=== PATIENT | female | born 1960 | race Caucasian/White ===

== ENCOUNTER 2022-08-19 09:35 | Inpatient (IN) ==
--- NOTE | 2022-08-19 10:17 | Emergency Department Note ---
Impression & Plan Infection of index finger, Cellulitis of multiple sites of right hand and fingers ED Provider Note CHIEF COMPLAINT: Infection of the right index finger and hand HISTORY OF PRESENT ILLNESS: This 61-year-old female patient presents to the emergency department by private vehicle with complaint of progressive redness and swelling of her right index finger that has now spread up to her right hand. She states she first noticed a small bump on the side of her right index finger a few months ago that was not bothersome. About a week ago she started to notice the area becoming slightly sore, red and swollen. It has been progressively getting larger and more red/purple in color. She saw her PCP 3 days ago and at that time was started on Keflex and Bactrim. She states that the area has continued to get more swollen and she is unable to bend the finger and now she has swelling and pain spreading up into her hand as well. She denies any fevers or chills and has had a normal appetite. She last ate yogurt this morning around 8:30 AM. There has not been any drainage from the area. She denies any other complaints. She is not diabetic. She does not have a history of abscesses. She does not have a history of bad infections or poor immune system. She reports that her tetanus is up-to-date. She has been applying Neosporin to the area as well. She denies any chest pain, shortness of breath, abdominal pain, nausea or vomiting, or unusual rashes. He denies any blood thinner medications. She is right-hand dominant. REVIEW OF SYSTEMS: A complete 10 point review of systems was reviewed with the patient with pertinent positives and negatives as per history of present ill ness. All else were negative. ALLERGIES: No known allergies PMH: Hypothyroidism SOCIAL HISTORY: Lives at home with family, she denies tobacco use PHYSICAL EXAM: Vital Signs: Reviewed in triage notes, vital signs stable. CONSTITUTIONAL: Pleasant and cooperative. No acute distress. Well appearing and well nourished. HEENT: Normocephalic, atraumatic. NECK: Supple, full active range of motion without discomfort. RESPIRATORY: Clear to auscultation bilaterally with no wheezing, crackles, rh onchi or stridor. Equal expansion bilaterally. CARDIOVASCULAR: Regular rate and rhythm with no murmurs, rubs or gallops. Normal peripheral perfusion, 2+ pulses in all 4 extremities. No peripheral edema. GASTROINTESTINAL: Soft, nontender, nondistended. No rebound tenderness or guarding. No palpable masses or HSM. Bowel sounds present in all quadrants. No CVA tenderness bilaterally. MUSCULOSKELETAL: Unable to flex the right index finger, very minimal range of motion. Full range of motion of the right wrist and other fingers. INTEGUMENTARY: There is erythema and swelling throughout the entire dorsum of the right hand and extending slightly up the wrist, with large area of circumferential fluctuance overlying the PIP joint in the right index finger. There is excoriated tissue over the dorsal aspect of the finger and there is purulent yellow discharge from the wound. Brisk capillary refill. NEUROLOGIC: Alert and oriented X 4 with normal affect. Normal strength and sensation in all 4 extremities. Normal speech. Normal gait observed. ED COURSE AND MEDICAL DECISION MAKING: CC: Patient presenting with complaint of right hand/finger infection DIFFERENTIAL DIAGNOSIS: Includes, but not limited to cellulitis, abscess, MRSA infection, tenosynovitis, septic joint, osteomyelitis, among others. INTERPRETATION OF LABS: Leukocytosis, no anemia, normal platelets, no significant electrolyte abnormalities, normal renal function, normal liver enzymes. Moderately elevated inflammatory markers. MEDICATION RECONCILIATION: I attest that I have personally reviewed the patient's current medication list. INITIAL VITAL SIGNS REVIEW: I reviewed the patient's initial vital signs and interpret them as follows: T: Afebrile; BP: Mildly hypertensive; HR: Mildly tachycardic; RR: Within normal limit; Pulse Ox: Within normal limits on room air. MDM SUMMARY: Patient was evaluated at bedside, history and physical exam performed. Patient is alert and oriented, in no acute distress, resting calmly in stretcher. She is afebrile and nontoxic-appearing. There is a significant area of swelling involving the right index finger and primarily overlying the PIP joint with fluctuance and purulent discharge. There is cellulitis extending up the dorsum of the hand and wrist. Minimal range of motion in the right index finger. Orders were placed for labs, including ESR and CRP, x-ray of the right hand. Patient discussed with Dr. Palumbo, who agrees with my assessment, plan, and dispo sition. Labs and imaging reviewed, labs noting leukocytosis and elevated inflammatory markers. X-ray demonstrated moderate soft tissue swelling most pronounced in the right index finger, with no evidence of foreign body, osteomyelitis, or fracture. I did consult orthopedic surgery, concerned that this patient needs to have urgent I&D with surgical washout given the extent of her infection and abscess overlying the joint. I spoke with Dr. Cosme, who requested that the patient not receive IV anti biotics in anticipation of performing wound culture during surgery. Patient is afebrile and well-appearing, I did not feel that she warranted immediate antibiotics at this time. The patient was admitted to the hospitalist service, Dr. Johnson, and orthopedics plan to take the patient for surgery later today. The patient was updated on all results and plan for admission and surgery, all questions were answered to the best of my ability and the patient was agreeable to this plan. Patient was stable at the time of admission. The chart was completed utilizing [employer] voice recognition software. Grammatical errors, random word insertions, pronoun errors, and incomplete sentences are an occasional consequence of this system due to software limitations, ambient noise, and hardware issues. Any formal questions or concerns about the content, text, or information contained within the body of this dictation should be directly addressed to the nurse practitioner for clarification. Past Med/Surg History Medical History Abnormal Pap smear of cervix Family history of cardiac disorder in mother Hypothyroidism Surgical History History of tubal ligation 1989 OR 1990 Family History Aunt Uterine cancer Grandmother (Paternal) Diabetes Uncle Diabetes Mother Heart disease Myocardial infarction Denies family history of Ovarian cancer Prostate cancer Breast cancer Colorectal cancer Social History Smoking Status: Never smoker Second Hand Exposure: No; Hx Alcohol Use: No Hx Substance Use: No Preferred Language: Greenlandic Communication Ability: Effective Visual Impairment: No Limitations Hearing 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: Normal 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 Beliefs That Will Affect Care: None marital status: Current Living Situation: Alone current occupational status: employed current occupation: Part-time [employer] Other Information That Helps Us Care for You: No Feels Safe at Home: Yes Safety Concerns: Feels Safe At This Time Dental Care, Regularly: No Physical Activity Frequency: 1-2 Times per Week Seatbelt Use: always Sunscreen Use: Yes Assistive Devices: Glasses Allergies Allergies Allergy/AdvReac Type Severity Reaction Status Date / Time No Known Allergies Allergy Verified 08/19/22 10:52 Home Meds Home Medications Medication Instructions Recorded Confirmed loratadine 10 mg tablet (Allergy 10 mg PO DAILY PRN Allergy Symptoms 05/22/19 08/19/22 Relief (loratadine)) multivitamin (One Daily 1 tab PO DAILY 05/22/19 08/19/22 Multivitamin tablet) calcium carbonate 600 mg-vitamin 1 cap PO HS 05/04/20 08/19/22 D3 12.5 mcg (500 unit) capsule (Calcium 600 with Vitamin D3) vitamin A palmitate 10,000 unit 10,000 unit PO DAILY 05/03/21 08/19/22 tablet ascorbic acid (vitamin C) 500 mg 500 mg PO HS 08/19/22 08/19/22 tablet (Vitamin C) zinc acetate 50 mg (zinc) capsule 50 mg PO DAILY 08/19/22 08/19/22 Previous Rx's Medication Instructions Recorded levothyroxine 50 mcg tablet 50 mcg PO DAILY #90 tabs 04/21/22 (Synthroid) cephalexin 500 mg capsule 500 mg PO BID #14 caps 08/16/22 sulfamethoxazole 800 1 tab PO BID 7 days #14 tabs 08/16/22 mg-trimethoprim 160 mg tablet (Bactrim DS) Results & Data (ED) Vital Signs Vital Signs - 24 hr 08/19/22 09:40 08/19/22 11:44 Temperature 37.1 C Temperature Source Temporal Artery Scan Pulse Rate 97 H Pulse Rate [Radial] 78 Respiratory Rate 18 18 Respiratory Effort / Characteristics Non-Labored Respiratory Depth Normal Normal Blood Pressure 143/84 H Blood Pressure [Left Arm] 135/65 Blood Pressure Mean 103 Blood Pressure Mean [Left Arm] 88 Blood Pressure Position Sitting Blood Pressure Position [Left Arm] Lying Pulse Oximetry 99 97 Oxygen Delivery Method Room Air Room Air Sepsis Recent Fever Within 48 Hours No Sepsis New/Unexplained Change in Mental Status No Sepsis Action Taken by Nursing No Action Required Laboratory Data Result diagrams: 08/19/22 10:28 08/19/22 10:28 Lab Results 08/19/22 08/19/22 08/19/22 Range/Units 10:28 10:28 10:28 WBC 13.95 H (4.8-10.8) K/ul RBC 4.30 (3.93-5.22) M/uL Hgb 13.8 (12.0-16.0) g/dl Hct 38.9 (34.1-44.9) % MCV 90.5 (80.0-100.0) fL MCH 32.1 (25.0-34.0) pg MCHC 35.5 (32.0-36.0) g/dL RDW Std Deviation 40.8 (36.4-46.3) fL RDW Coeff of Willem 12.3 (11.5-14.5) % Plt Count 173 (130-400) K/uL MPV 11.2 (9.4-12.3) fL Immature Gran % (Auto) 0.4 % Neut % (Auto) 80.1 % Lymph % (Auto) 9.2 % Mcdowell % (Auto) 9.2 % Eos % (Auto) 0.9 % Baso % (Auto) 0.2 % Neut # (Auto) 11.17 H (1.4-6.5) K/uL Lymph # (Auto) 1.28 (1.2-3.4) K/uL Mcdowell # (Auto) 1.29 H (0.24-0.82) K/uL Eos # (Auto) 0.12 (0-0.50) K/uL Baso # (Auto) 0.03 (0-0.2) K/uL Immature Gran # (Auto) 0.06 H (0.00-0.02) K/uL ESR 40 H (0-30) mm/hr Sodium 136 (136-145) mmol/L Potassium 4.2 (3.5-5.1) mmol/L Chloride 103 (98-107) mmol/L Carbon Dioxide 23 (21-32) mmol/L Anion Gap 10 (3-11) BUN 14 (6-23) mg/dl Creatinine 0.75 (0.6-1.2) mg/dl Est Cr Clr Drug Dosing 77.3 ml/min Est GFR ( Amer) 98.3 ml/min Est GFR (Non-Af Amer) 84.8 ml/min BUN/Creatinine Ratio 18.7 (10-20) Glucose 114 H (70-99(Fasting)) mg/dl Calcium 9.2 (8.5-10.1) mg/dl Total Bilirubin 0.6 (0.2-1.0) mg/dl AST 17 (13-39) U/L ALT 11 (7-52) U/L Alkaline Phosphatase 86 (34-104) U/L C-Reactive Protein 19.10 H (0-0.5) mg/dl Total Protein 7.3 (6.0-8.3) gm/dl Albumin 4.1 (3.4-5.0) gm/dl Globulin 3.2 (2.5-4.0) gm/dl Albumin/Globulin Ratio 1.3 (0.9-2) Administered Medications Ceftriaxone Sodium 1,000 mg/ (Dextrose) 50 mls @ 100 mls/hr IV Q24H [facility]; Protocol Stop: 08/26/22 17:59 Last Admin: 08/19/22 18:19 Dose: 100 mls/hr Documented By: SABIHA Discontinued Medications Bupivacaine HCl (Bupivacaine 0.5 % 5 Mg/1 Ml Mpf 30ml Vial) Confirm Administered Dose 30 ml .ROUTE .[employer] ONE Stop: 08/19/22 14:55 Last Admin: 08/19/22 15:51 Dose: 12 ml Documented By: JARRED Imaging Data Radiologist's Impression: Finger X-Ray 08/19/22 10:13 XR finger(s) RT min 2V, XR hand RT min 3V routine HISTORY: 61 years-old Female index finger infection acute pain with soft tissue swelling of the right hand and second finger COMPARISON: None TECHNIQUE: 3 views of the right hand with 3 views of the right second finger FINDINGS: HAND: Mild multifocal osteoarthritis. No acute fracture, dislocation or osseous erosion. Mild diffuse soft tissue swelling, pronounced within the second finger. FINGER: Moderate soft tissue swelling, most pronounced within the proximal to mid finger. No acute fracture, dislocation, opaque foreign body or osseous erosion identified. IMPRESSION: Soft tissue swelling without acute osseous abnormality. ACT 112: Negative or not required by law. The above report was generated using voice recognition software. It may contain grammatical, syntax or spelling errors. Electronically signed by: Da Mccallum M.D. 08/19/2022 10:59 AM Hand X-Ray 08/19/22 10:18 XR finger(s) RT min 2V, XR hand RT min 3V routine HISTORY: 61 years-old Female index finger infection acute pain with soft tissue swelling of the right hand and second finger COMPARISON: None TECHNIQUE: 3 views of the right hand with 3 views of the right second finger FINDINGS: HAND: Mild multifocal osteoarthritis. No acute fracture, dislocation or osseous erosion. Mild diffuse soft tissue swelling, pronounced within the second finger. FINGER: Moderate soft tissue swelling, most pronounced within the proximal to mid finger. No acute fracture, dislocation, opaque foreign body or osseous erosion identified. IMPRESSION: Soft tissue swelling without acute osseous abnormality. ACT 112: Negative or not required by law. The above report was generated using voice recognition software. It may contain grammatical, syntax or spelling errors. Electronically signed by: Da Mccallum M.D. 08/19/2022 10:59 AM Discharge Plan Visit Data Chief Complaint: Finger Pain Stated Complaint: INFECTION ON RIGHT INDEX FINGER, SWOLLEN ED Provider: Zachery Palumbo ED Midlevel Provider: Jacqueline Alba Discharge Problem: Infection of index finger, Cellulitis of multiple sites of right hand and fingers Patient Disposition: Admitted As Inpatient Condition: Good
[2022-08-19 10:58] LABS: Basophils # (auto) 0.03 K/uL (0-0.2); Basophils % (auto) 0.2 %; Eosinophils # (auto) 0.12 K/uL (0-0.50); Eosinophils % (auto) 0.9 %; Hematocrit (blood only) 38.9 % (34.1-44.9); Hemoglobin 13.8 g/dl (12.0-16.0); Immature Granulocytes # (auto) 0.06 K/uL (0.00-0.02); Immature Granulocytes % (auto) 0.4 %; Lymphocytes # (auto) 1.28 K/uL (1.2-3.4); Lymphocytes % (auto) 9.2 %; Mean Corpuscular Hemoglobin 32.1 pg (25.0-34.0); Mean Corpuscular Hgb Conc 35.5 g/dL (32.0-36.0); Mean Corpuscular Volume 90.5 fL (80.0-100.0); Mean Platelet Volume 11.2 fL (9.4-12.3); Monocytes # (auto) 1.29 K/uL (0.24-0.82); Monocytes % (auto) 9.2 %; Neutrophils # (auto) 11.17 K/uL (1.4-6.5); Neutrophils % (auto) 80.1 %; Platelet Count 173 K/uL (130-400); RDW Coefficient of Variation 12.3 % (11.5-14.5); RDW Standard Deviation 40.8 fL (36.4-46.3); White Blood Count 13.95 K/ul (4.8-10.8)
--- NOTE | 2022-08-19 11:03 | XRay Report ---
XR finger(s) RT min 2V, XR hand RT min 3V routine HISTORY: 61 years-old Female index finger infection acute pain with soft tissue swelling of the righ t hand and second finger COMPARISON: None TECHNIQUE: 3 views of the right hand with 3 views of the right second finger FINDINGS: HAND: Mild multifocal osteoarthritis. No acute fracture, dislocation or osseous erosion. Mild diffuse soft tissue swelling, pronounced within the second finger. FINGER: Moderate soft tissue swelling, most pronounced within the proximal to mid finger. No acute fr acture, dislocation, opaque foreign body or osseous erosion identified. IMPRESSION: Soft tissue swelling without acute osseous abnormality. ACT 112: Negative or not required by law. The above report was generated using voice recognition software. It may contain grammatical, syntax o r spelling errors. Electronically signed by: Da Mccallum M.D. 08/19/2022 10:59 AM
[2022-08-19 11:17] LABS: Albumin Globulin Ratio 1.3 (0.9-2); Albumin Level 4.1 gm/dl (3.4-5.0); BUN Creatinine Ratio 18.7 (10-20); Bilirubin,Total 0.6 mg/dl (0.2-1.0); C Reactive Protein 19.1 mg/dl (0-0.5); Calcium 9.2 mg/dl (8.5-10.1); Creatinine Clr Calc Pharmacy 77.3 ml/min; Est GFR (African American) 98.3 ml/min; Est GFR (Non-African American) 84.8 ml/min; Globulin 3.2 gm/dl (2.5-4.0); Potassium 4.2 mmol/L (3.5-5.1); Total Protein 7.3 gm/dl (6.0-8.3)
--- NOTE | 2022-08-19 13:25 | History & Physical Report ---
Date of Service August 19, 2022 Assessment & Plan (1) Cellulitis of right index finger: Plan: - Patient had a "bump " on R 2nd PIP join for months or possibly up to year which is never been problematic until this past week when it became red and swollen, painful, unknown why as she has no recent injuries to the area, hands in water frequently, etc. - She saw her PCP on 08/16, diagnosed with a skin infection due to cracked skin, has been on Keflex and Bactrim. - Erythema, edema worsening now with drainage of open wound on second digit despite abx. It extends to just about the level of the wrist, knuckle joints obscured from swelling. - Patient does not appear septic, vital signs are stable, has been afebrile without any symptoms of systemic infection. - WBC 14, ESR 40, CRP 19. - Hand, finger x-ray: Soft tissue swelling without acute osseous abnormality. - Ortho to see patient hold off on further antibiotics for now until they can collect a culture. - Will plan to place on Vancomycin and Rocephin after ortho collects culture, unless they recommend otherwise. - Please see my attending physician, Dr. Johnson's note for day of admission imaging. (2) Hypothyroidism: Plan: - Continue Synthroid. Plan - Admit to [facility]. - SCDs for VTE PPx. - Full code. History of Present Illness Chief Complaint: second digit redness and swelling x several days Primary Care Provider: Melissa Liang MD Sharon Arellano is a 61-year-old female with a past medical history of hypothyroidism who is presenting today with right hand swelling. Several months ago she developed a right nodule on her right index finger which has been painless and stable. 1 week ago she noticed it became more sore and red and the area gradually became more swollen. She saw her PCP 3 days ago on 08/16 who diagnosed her with a skin infection likely due to cracked skin, placed her on Bactrim and Keflex. Despite compliance with medications, patient notes that the swelling and redness have only worsened since then. She is not having severe pain, but it is uncomfortable with deep touch. She has no injuries to the index finger, has not had history of skin or soft tissue infections. She is nondiabetic. She has not noticed any other symptoms of infection such as fever chills, fatigue, body aches. She is right-hand dominant, and the second right finger is so swollen now that it is difficult for her to use it or bend at that joint. Some numbness of the finger, but noother hand/arm numbness, tingling, severe pain, or cold to touch. On presentation to ED, her vital signs are within normal limits and stable. Her labs are notable for 5 WBC of 13.9 with ESR 40 and CRP 19. No other lab abnormalities. Finger and hand x-rays show soft tissue swelling without acute osseous abnormality. Orthopedic surgery was consulted by ED provider. Will assess patient in ED and determine need for OR for drainage. Allergies Allergy/AdvReac Type Severity Reaction Status Date / Time No Known Allergies Allergy Verified 08/19/22 10:52 Home Medications Medication Instructions Recorded Confirmed Type loratadine 10 mg tablet (Allergy 10 mg PO DAILY PRN Allergy Symptoms 05/22/19 08/19/22 History Relief (loratadine)) multivitamin (One Daily 1 tab PO DAILY 05/22/19 08/19/22 History Multivitamin tablet) calcium carbonate 600 mg-vitamin 1 cap PO HS 05/04/20 08/19/22 History D3 12.5 mcg (500 unit) capsule (Calcium 600 with Vitamin D3) vitamin A palmitate 10,000 unit 10,000 unit PO DAILY 05/03/21 08/19/22 History tablet levothyroxine 50 mcg tablet 50 mcg PO DAILY #90 tabs 04/21/22 08/19/22 Rx (Synthroid) cephalexin 500 mg capsule 500 mg PO BID #14 caps 08/16/22 08/19/22 Rx sulfamethoxazole 800 1 tab PO BID 7 days #14 tabs 08/16/22 08/19/22 Rx mg-trimethoprim 160 mg tablet (Bactrim DS) ascorbic acid (vitamin C) 500 mg 500 mg PO HS 08/19/22 08/19/22 History tablet (Vitamin C) zinc acetate 50 mg (zinc) capsule 50 mg PO DAILY 08/19/22 08/19/22 History Past Med/Surg History Medical History Abnormal Pap smear of cervix Family history of cardiac disorder in mother Hypothyroidism Surgical History History of tubal ligation 1989 OR 1990 Family History Aunt Uterine cancer Grandmother (Paternal) Diabetes Uncle Diabetes Mother Heart disease Myocardial infarction Denies family history of Ovarian cancer Prostate cancer Breast cancer Colorectal cancer Social History Smoking Status: Never smoker Second Hand Exposure: No; Hx Alcohol Use: No Hx Substance Use: No Visual Impairment: No Limitations Hearing Ability: Normal marital status: Current Living Situation: Spouse current occupational status: employed current occupation: Part-time [employer] Feels Safe at Home: Yes Dental Care, Regularly: No Physical Activity Frequency: 1-2 Times per Week Seatbelt Use: always Sunscreen Use: Yes Review of Systems 2 Review of Systems: Constitutional: No fever/chills, weakness, fatigue, myalgias, anorexia, night sweats Eyes: No diplopia, no worsening or blurred vision ENT: normal hearing, no trouble swallowing Respiratory: No cough, sputum, dyspnea at rest or on exertion Cardiovascular: No chest pain, tightness or palpitations Abdomen: No pain, nausea, vomiting, diarrhea or constipation : Denies dysuria, hematuria, increased urgency/frequency, urinary retention Musculoskeletal: right second digit redness, swelling for several days now with 1 day of numbness and purulent drainage, worsening/spreading redness and swelling to wrist; No other joint pain, calf pain, swelling Neurologic: No weakness, numbness/tingling, or balance problems Psychiatric: No anxiety or depression Skin: No rash or itch Physical Exam Physical Exam: General: awake, alert, no apparent distress Head: Normocephalic, atraumatic ENT: PERRL, EOMI, no pharyngeal exudate, mucous membranes moist Chest: Clear to auscultation, on room air, no adventitious breath sounds Cardiac: Regular rate and rhythm, no murmur, no JVD, normal peripheral pulses, good capillary refill Abdominal: NABS x 4 quadrants, soft, nontender to palpation, no rebound, guarding or tenderness Extremities: Normal inspection, no peripheral edema or erythema, calfs nontender to palpation Psych: Normal mood and affect Neuro: AAO x 3, strength intact bilaterally and rated 5/5, no motor deficits, speech is clear, no peripheral sensory deficits Skin: see attending physician's note for image of infection on day of admit Results & Data Results & Data ([facility]) Vital Signs (Past 12 Hours) Vital Signs Temp Pulse Pulse Resp BP BP Pulse Ox 08/19/22 11:44 78 18 135/65 97 08/19/22 09:40 37.1 C 97 H 18 143/84 H 99 O2 Del Method 08/19/22 11:44 Room Air 08/19/22 09:40 Room Air Laboratory Results Abnormal lab results 08/19/22 08/19/22 08/19/22 Range/Units 10:28 10:28 10:28 WBC 13.95 H (4.8-10.8) K/ul Neut # (Auto) 11.17 H (1.4-6.5) K/uL [place] # (Auto) 1.29 H (0.24-0.82) K/uL Immature Gran # (Auto) 0.06 H (0.00-0.02) K/uL ESR 40 H (0-30) mm/hr Glucose 114 H (70-99(Fasting)) mg/dl C-Reactive Protein 19.10 H (0-0.5) mg/dl Diagnostic Findings Finger X-Ray 08/19/22 10:13 XR finger(s) RT min 2V, XR hand RT min 3V routine HISTORY: 61 years-old Female index finger infection acute pain with soft tissue swelling of the right hand and second finger COMPARISON: None TECHNIQUE: 3 views of the right hand with 3 views of the right second finger FINDINGS: HAND: Mild multifocal osteoarthritis. No acute fracture, dislocation or osseous erosion. Mild diffuse soft tissue swelling, pronounced within the second finger. FINGER: Moderate soft tissue swelling, most pronounced within the proximal to mid finger. No acute fracture, dislocation, opaque foreign body or osseous erosion identified. IMPRESSION: Soft tissue swelling without acute osseous abnormality. ACT 112: Negative or not required by law. The above report was generated using voice recognition software. It may contain grammatical, syntax or spelling errors. Electronically signed by: Da Mccallum M.D. 08/19/2022 10:59 AM Hand X-Ray 08/19/22 10:18 XR finger(s) RT min 2V, XR hand RT min 3V routine HISTORY: 61 years-old Female index finger infection acute pain with soft tissue swelling of the right hand and second finger COMPARISON: None TECHNIQUE: 3 views of the right hand with 3 views of the right second finger FINDINGS: HAND: Mild multifocal osteoarthritis. No acute fracture, dislocation or osseous erosion. Mild diffuse soft tissue swelling, pronounced within the second finger. FINGER: Moderate soft tissue swelling, most pronounced within the proximal to mid finger. No acute fracture, dislocation, opaque foreign body or osseous erosion identified. IMPRESSION: Soft tissue swelling without acute osseous abnormality. ACT 112: Negative or not required by law. The above report was generated using voice recognition software. It may contain grammatical, syntax or spelling errors. Electronically signed by: Da Mccallum M.D. 08/19/2022 10:59 AM Code Status & VTE Plan Code Status Full Code. Supervising Physician Co-Signing Physician Notes Patient seen and examined, chart reviewed, case discussed with Thuy Miller PA-C and I agree with the assessment and plan as above except as otherwise noted Labs and images reviewed Sharon is a 61-year-old female with a past medical history of hypothyroidism and seasonal allergies who presents for evaluation of a rapidly worsening right index finger infection. She reports that for the last year she has had a small unchanging nodule on the first knuckle (PIP) which had not been changing. She saw her primary care physician 2 days ago for a sudden increase in redness and swelling and she was placed on Keflex and Bactrim. Over the last 48 hours the knuckle has rapidly worsened with spreading erythema down to the rest and copious purulent discharge from a break in the skin at the dorsal PIP. She has not had any fever, chills, sweats, lightheadedness, dizziness, chest pain, palpitations, or night sweats. She has not had any issues with skin infections or recurrent infections in the past. Denies any immunocompromise or immunosuppressive medications. Reports she thinks her tetanus is up-to-date within the last 5 to 10 years. She denies any history of cardiac disease and valvular disease. she did not sustain any cuts, injuries, scrapes leading to her infection although she notes she gets dry skin which cracks sometimes. She washes dishes at home, otherwise denies any water exposure to the hand including salt water/brackish water or rosas water. On exam right hand is with erythema focused around the right second PIP and extending just proximal to the wrist, marked and a photo is attached below. Dorsal surface is with a break in the skin surface draining purulent material and a small amount of blood. Patient reports that the finger is mostly numb and is not overtly painful to her, has slight discomfort when pus is expressed. She is not able to active flex or extend the digit more than 15 degrees due to pressure, she reports she has a little bit of pain but is mostly just limiting pressure in the finger. Passive flexion of the finger and active extension does produce some pain/pressure in the dorsal hand not extending to the wrist. General feeling of pressure does spread proximally to the MCP. She reports that she is right-handed denies wrist pain. Recommend MRSA coverage with vancomycin pending culture results in addition to general skin shirley coverage with Rocephin. Discussed with ER provider, orthopedics with stat consult will see patient for washout and antibiotic initiation is pending surgical cultures A/P: Extensive soft tissue swelling and purulent cellulitis of the right second digit most prominent at the PIP, with possible underlying tendon involvement and without evidence of ostial involvement. Cultures as above. Has not improved with Bactrim/Keflex. Surgical consult placed for debridement, and subsequently agree with placing on Rocephin/Vanco after cultures collected PG Care Time/CCT Total # of Minutes Spent Total Time Spent with Patient: Total time spent is greater than 50% in coordination of care (as documented) at patient's floor/unit and/or counseling patient: Coding Level of Care Code 76752 Initial Inpt Care Lvl 3 Diagnoses Cellulitis of right index finger L03.011 Hypothyroidism E03.9
--- NOTE | 2022-08-19 14:44 | Orthopedic Consultation ---
Date of Service August 19, 2022 Assessment & Plan (1) Infection of index finger: We discussed diagnosis and treatment options at bedside. I recommended taking her to the operating room for formal open irrigation debridement of the abscess of her right index finger. She would like to proceed. She understands the risk, benefits, alternatives to procedure. Questions were answered and consent was signed. Time was spent scribing the procedure and post expectations. We will take her to the operating room soon. History of Present Illness Reason for Consultation: Infection right index finger. Requesting Physician: . Sharon Arellano is a 61-year-old female with a past medical history of hypothyroidism who is presenting today with right hand swelling. Several months ago she developed a right nodule on her right index finger which has been painless and stable. 1 week ago she noticed it became more sore and red and the area gradually became more swollen. She saw her PCP 3 days ago on 08/16 who diagnosed her with a skin infection likely due to cracked skin, placed her on Bactrim and Keflex. Despite compliance with medications, patient notes that the swelling and redness have only worsened since then. She is not having severe pain, but it is uncomfortable with deep touch. She has no injuries to the index finger, has not had history of skin or soft tissue infections. She is nondiabetic. She has not noticed any other symptoms of infection such as fever chills, fatigue, body aches. She is right-hand dominant, and the second right finger is so swollen now that it is difficult for her to use it or bend at that joint. Some numbness of the finger, but noother hand/arm numbness, tingling, severe pain, or cold to touch. On presentation to ED, her vital signs are within normal limits and stable. Her labs are notable for 5 WBC of 13.9 with ESR 40 and CRP 19. No other lab abnormalities. Finger and hand x-rays show soft tissue swelling without acute osseous abnormality. Orthopedics was consulted to evaluate and treat. Allergies Allergy/AdvReac Type Severity Reaction Status Date / Time No Known Allergies Allergy Verified 08/19/22 10:52 Home Medications Medication Instructions Recorded Confirmed Type loratadine 10 mg tablet (Allergy 10 mg PO DAILY PRN Allergy Symptoms 05/22/19 08/19/22 History Relief (loratadine)) multivitamin (One Daily 1 tab PO DAILY 05/22/19 08/19/22 History Multivitamin tablet) calcium carbonate 600 mg-vitamin 1 cap PO HS 05/04/20 08/19/22 History D3 12.5 mcg (500 unit) capsule (Calcium 600 with Vitamin D3) vitamin A palmitate 10,000 unit 10,000 unit PO DAILY 05/03/21 08/19/22 History tablet levothyroxine 50 mcg tablet 50 mcg PO DAILY #90 tabs 04/21/22 08/19/22 Rx (Synthroid) cephalexin 500 mg capsule 500 mg PO BID #14 caps 08/16/22 08/19/22 Rx sulfamethoxazole 800 1 tab PO BID 7 days #14 tabs 08/16/22 08/19/22 Rx mg-trimethoprim 160 mg tablet (Bactrim DS) ascorbic acid (vitamin C) 500 mg 500 mg PO HS 08/19/22 08/19/22 History tablet (Vitamin C) zinc acetate 50 mg (zinc) capsule 50 mg PO DAILY 08/19/22 08/19/22 History Past Med/Surg History Medical History Abnormal Pap smear of cervix Family history of cardiac disorder in mother Hypothyroidism Surgical History History of tubal ligation 1989 OR 1990 Family History Aunt Uterine cancer Grandmother (Paternal) Diabetes Uncle Diabetes Mother Heart disease Myocardial infarction Denies family history of Ovarian cancer Prostate cancer Breast cancer Colorectal cancer Social History Smoking Status: Never smoker Second Hand Exposure: No; Hx Alcohol Use: No Hx Substance Use: No Visual Impairment: No Limitations Hearing Ability: Normal marital status: Current Living Situation: Spouse current occupational status: employed current occupation: Part-time [employer] Up Person Feels Safe at Home: Yes Dental Care, Regularly: No Physical Activity Frequency: 1-2 Times per Week Seatbelt Use: always Sunscreen Use: Yes Review of Systems All systems reviewed & are unremarkable except as noted in HPI & below. Physical Exam On physical examination the right hand, there is cellulitis and redness throughout her thumb index and second finger. It does streak up past her wrist. There is a very large abscess over the PIP joint of her right index finger.. Constitutional WD/WN, vitals as above Eyes PERRL, conjunctivae normal, anicteric sclerae ENMT external ear and nose normal, oropharynx normal Neck trachea midline, no thyromegaly Respiratory normal respiratory effort, lungs clear to auscultation Cardiovascular RRR, no murmur, no edema Gastrointestinal (Abdomen) normal bowel sounds, soft, nontender, no hepatosplenomegaly Skin no rashes, warm and dry Psychiatric A+Ox3, euthymic affect Results & Data Results & Data Laboratory Results . Diagnostic Findings X-rays of the right hand were negative. It just showed a little bit of soft tissue swelling but no osseous abnormalities.. PG Care Time/CCT Total # of Minutes Spent Total Time Spent with Patient: Total time spent is greater than 50% in coordination of care (as documented) at patient's floor/unit and/or counseling patient: Coding Level of Care Code 52564 Inpt Consult Level 4 (57 - DECISION FOR SURGERY) Diagnoses Infection of index finger L08.9
--- NOTE | 2022-08-19 14:47 | History & Physical Bridge Note ---
Date of Service August 19, 2022 History & Physical Bridge Note I have examined the patient, reviewed the History & Physical and in the interval since the performance of the History & Physical I have noted the following changes of clinical significance: no changes noted
[2022-08-19] MEDS ORDERED: BUPIVACAINE 0.5 % 5 MG/1 ML MPF 30ML VIAL ONE (14:54)
[2022-08-19] MEDS ORDERED: fentaNYL citrate 100 MCG/2 ML VIAL ONE (15:02)
[2022-08-19] MEDS ORDERED: LIDOCAINE 2% MPF LOCAL 5 ML VIAL INFIL ONE (15:02)
[2022-08-19] MEDS ORDERED: MIDAZOLAM HCL 1 MG/ML 2ML VIAL ONE (15:02)
[2022-08-19] MEDS ORDERED: PROPOFOL IV EMULSION 10 MG/ML 20 ML VIAL IV ONE (15:02)
--- NOTE | 2022-08-19 15:16 | Anesthesiology Consultation ---
Date of Service August 19, 2022 Assessment & Plan ASA ASA2 Proposed Anesthesia Anesthesia Type: General Risk / Benefits Reviewed With: PT / POA / Parent / Guardian, Accepts Plan and Informed Consent Obtained History Surgery Operation Date: 08/19/22 14:00 Proposed Procedures p Right Finger Infection Incision and Drainage Extremity - Jose Roberto Shabazz DO Height/Weight Height: 5 ft 5 in Weight: 74 kg Allergies Allergy/AdvReac Type Severity Reaction Status Date / Time No Known Allergies Allergy Verified 08/19/22 10:52 Medications Home Medications Medication Instructions Recorded Confirmed Last Taken loratadine 10 mg tablet (Allergy 10 mg PO DAILY PRN Allergy Symptoms 05/22/19 08/19/22 Unknown Relief (loratadine)) multivitamin (One Daily 1 tab PO DAILY 05/22/19 08/19/22 08/19/22 Multivitamin tablet) calcium carbonate 600 mg-vitamin 1 cap PO HS 05/04/20 08/19/22 08/18/22 D3 12.5 mcg (500 unit) capsule (Calcium 600 with Vitamin D3) vitamin A palmitate 10,000 unit 10,000 unit PO DAILY 05/03/21 08/19/22 08/19/22 tablet levothyroxine 50 mcg tablet 50 mcg PO DAILY #90 tabs 04/21/22 08/19/22 08/19/22 (Synthroid) cephalexin 500 mg capsule 500 mg PO BID #14 caps 08/16/22 08/19/22 08/19/22 07:30 sulfamethoxazole 800 1 tab PO BID 7 days #14 tabs 08/16/22 08/19/22 08/19/22 07:30 mg-trimethoprim 160 mg tablet (Bactrim DS) ascorbic acid (vitamin C) 500 mg 500 mg PO HS 08/19/22 08/19/22 07/09/22 tablet (Vitamin C) zinc acetate 50 mg (zinc) capsule 50 mg PO DAILY 08/19/22 08/19/22 08/19/22 NPO Date Last Intake of Fluids: 08/19/22 Time Last Intake of Fluids: 08:00 Date Last Intake of Solids: 08/19/22 Time Last Intake of Solids: 08:00 Last Intake of Solids Comment: ash Past Medical History Medical History Abnormal Pap smear of cervix Family history of cardiac disorder in mother Hypothyroidism Exercise / Class Metabolic Activity II 4-5 Yardwork/Stairs/Walk up hill Past Family History Family History Aunt Uterine cancer Grandmother (Paternal) Diabetes Uncle Diabetes Mother Heart disease Myocardial infarction Denies family history of Ovarian cancer Prostate cancer Breast cancer Colorectal cancer Past Surgical History Surgical History History of tubal ligation 1989 OR 1990 Past Anesthesia History No Hx of Anesthesia Complications and No Family Hx of Anesthesia Complications History of PONV No Hx of PONV and No Hx of Motion Sickness Social History Smoking Status: Never smoker Hx Alcohol Use: No Hx Substance Use: No Review of Systems denies fever/cough/ colds/ chest pain/ SOB/ WOODY denies WOODY Physical Exam Vital Signs Last Vital Signs Temp 37.1 C 08/19/22 09:40 Pulse 70 08/19/22 14:51 Resp 16 08/19/22 14:51 BP 149/76 H 08/19/22 14:51 Pulse Ox 100 08/19/22 14:51 O2 Del Method 08/19/22 11:44 ENMT Mouth: + chipped teeth; no TMJ abnormality and no dentition abnormality Thyromental Distance: > or= 3.5 Finger Breadths Mallampati Class: II Neck neck extension not limited Respiratory normal respiratory effort; no respiratory distress Auscultation: lungs clear to auscultation bilaterally Cardiovascular Rate/Rhythm: regular rate and regular rhythm Neurologic moves all extremities Psychiatric Orientation: alert and oriented x 3 Testing Laboratory Results 08/19/22 10:28 08/19/22 10:28
[2022-08-19] MEDS ORDERED: ONDANSETRON INJ 2 MG/ML 2 ML VIAL ONE (15:43)
--- NOTE | 2022-08-19 16:03 | Operative Report ---
PG Post Operative Report Pre & Post Diagnosis Operation Date: 08/19/22 14:00 Pre-Op Diagnosis: Infection of index finger, right Post-Op Diagnosis: Infection of index finger, right I identified the patient and participated in the time-out.: Yes Procedure Operation Date: 08/19/22 14:00 Actual Procedures p Irrigation and debridement right index finger(Right) - Jose Roberto Shabazz DO Surgeon Jose Roberto Shabazz DO Science Job Titles None Estimated Blood Loss 5 Findings Consistent with Post-Op Diagnosis Specimens 2 cultures Description of Procedure On August 19, 2022 Sharon was seen in the emergency room with a large abscess on the dorsal aspect of her right index finger. Decision was made to take her immediately to the operating room. In the preoperative holding area the operative extremity identified and signed. She was not started on an antibiotics yet. She was then taken back the operating room and laid on the table in supine position. She was put under general anesthesia. The right hand was prepped and draped in sterile fashion. A timeout was done. The patient and the operative extremity was properly identified. A longitudinal incision was made over the dorsal aspect of the proximal phalanx of the right index finger. There was a large abscess that was evacuated. 2 cultures were taken. Time was spent irrigating the wound. The wound did track up proximally towards the MCP joint. I did not see any place where the infection was in the joint. The extensor mechanism was intact. The wound was irrigated with a total of 1 L normal saline solution. A Austin drain was placed. The wound was then closed with 4-0 nylon suture. She was placed in a soft dressing. She was then extubated and taken to the postanesthesia care unit in stable condition. She tolerated the procedure well. I attest to the content of the Intraoperative Record and any orders documented therein. Any exceptions are noted below.
--- NOTE | 2022-08-19 16:39 | Anesthesiology Progress Note ---
Date of Service August 19, 2022 Anesthesia Post Procedure Vital Signs Vital Signs: Temp Pulse Pulse Pulse Resp BP BP 08/19/22 16:30 97.5 F L 77 16 128/75 08/19/22 16:20 75 16 123/71 08/19/22 16:10 70 14 131/71 08/19/22 16:03 97.5 F L 81 18 120/67 08/19/22 15:02 99.7 F H 82 18 126/65 08/19/22 14:51 70 16 149/76 H 08/19/22 11:44 78 18 135/65 08/19/22 09:40 98.8 F 97 H 18 143/84 H Pulse Ox O2 Del Method O2 Flow Rate 08/19/22 16:30 97 Room Air 08/19/22 16:20 96 Room Air 08/19/22 16:10 98 Oxymask 2 08/19/22 16:03 97 Oxymask 4 08/19/22 15:02 97 Room Air 08/19/22 14:51 100 08/19/22 11:44 97 Room Air 08/19/22 09:40 99 Room Air Pain Intensity Right 2nd Digit: Pain Intensity: 5 Transfer of Care Handoff Completed per policy Notes Mental Status: alert / awake / arousable and participated in evaluation Patient Amnestic to Procedure: Yes Nausea / Vomiting: adequately controlled Pain: adequately controlled Airway Patency, RR, SpO2: stable & adequate BP & HR: stable & adequate Hydration State: stable & adequate Anesthetic Complications: no major complications apparent and Pt Satisfied with anesthetic care
[2022-08-19] MEDS ORDERED: ONDANSETRON INJ 2 MG/ML 2 ML VIAL IV PRN (17:04)
[2022-08-19] MEDS ORDERED: LORATADINE 10 MG TAB PO PRN (17:04)
[2022-08-19] MEDS ORDERED: VANCOMYCIN HCL 1,500 MG in SODIUM CHLORIDE 0.9% 500 ML IV ONE ×2 (17:55→18:15)
[2022-08-19] MEDS ORDERED: VANCOMYCIN CONSULT ACTIVE PRN (17:55)
[2022-08-19] MEDS: cefTRIAXone SODIUM 1,000 MG in DEXTROSE 5% AD-VAN 50 ML IV SCH (18:19)
[2022-08-19] MEDS: CALCIUM 600MG + VIT D 400 IU TAB PO SCH (20:05)
[2022-08-19] MEDS: ASCORBIC ACID 500 MG TAB PO SCH (20:05)
--- NOTE | 2022-08-19 20:37 | Pharmacy Report ---
Pharmacy PK ABX Note - Date of Service August 19, 2022 - Assessment and Plan Assessment 61 year old F receiving VANCOMYCIN for treatment of SSTI. Pertinent microbiologic data includes: Day # 1 of antimicrobial therapy. Plan Vancomycin * Loading dose: 1500 mg IV x 1 * Maintenance dose: 1000 mg IV every 12 hours * Regimen is predicted to achieve target AUC/LIZ of 400-600 mg/L.hr * Trough level ordered for: 08/21/22 @0400 Pharmacy will continue to follow and will adjust dose/frequency as necessary. Thank you. Pharmacy has transitioned to AUC monitoring for vancomycin. AUC/LIZ is the preferred PK/PD target and is associated with decreased risk of nephrotoxicity compared to traditional trough targets.
[2022-08-19] MEDS: ACETAMINOPHEN 500 MG TAB PO PRN (20:48)
[2022-08-20] MEDS: VANCOMYCIN HCL 1,000 MG in SODIUM CHLORIDE 0.9% 250 ML IV SCH ×2 (05:13→16:40)
[2022-08-20 06:03] LABS: Basophils # (auto) 0.03 K/uL (0-0.2); Basophils % (auto) 0.3 %; Eosinophils % (auto) 2.1 %; Hematocrit (blood only) 35.9 % (34.1-44.9); Hemoglobin 12.4 g/dl (12.0-16.0); Immature Granulocytes # (auto) 0.03 K/uL (0.00-0.02); Immature Granulocytes % (auto) 0.3 %; Lymphocytes # (auto) 1.42 K/uL (1.2-3.4); Lymphocytes % (auto) 14.6 %; Mean Corpuscular Hemoglobin 31.7 pg (25.0-34.0); Mean Corpuscular Hgb Conc 34.5 g/dL (32.0-36.0); Mean Corpuscular Volume 91.8 fL (80.0-100.0); Monocytes % (auto) 9.2 %; Neutrophils # (auto) 7.17 K/uL (1.4-6.5); Neutrophils % (auto) 73.5 %; Platelet Count 173 K/uL (130-400); RDW Standard Deviation 40.7 fL (36.4-46.3); Red Blood Count 3.91 M/uL (3.93-5.22); White Blood Count 9.75 K/ul (4.8-10.8)
[2022-08-20 06:21] LABS: BUN Creatinine Ratio 19.4 (10-20); C Reactive Protein 18.67 mg/dl (0-0.5); Creatinine Clr Calc Pharmacy 80.5 ml/min; Est GFR (African American) 103.3 ml/min; Est GFR (Non-African American) 89.1 ml/min; Magnesium 1.6 mg/dl (1.7-2.4)
[2022-08-20] MEDS: LEVOTHYROXINE SODIUM 50 MCG TABLET PO SCH (08:28)
[2022-08-20] MEDS: MULTIVITAMIN TAB PO SCH (08:28)
--- NOTE | 2022-08-20 08:36 | Orthopedic Progress Note ---
Date of Service August 20, 2022 Assessment & Plan (1) Cellulitis of right index finger: She seems to be doing fairly well so far. The hospitalist has her on ceftriaxone and vancomycin. It will take a few days for the antibiotics to really start to take effect. I plan to change the dressing and pull the Kerri drain tomorrow. Subjective Sharon was seen and examined at bedside this morning. Overall she is doing okay. She is not having much pain in the right hand. She was able to get some sleep last night. The redness is already looking a little bit better.. Review of Systems All systems reviewed & are unremarkable except as noted in HPI & below. Physical Exam On physical examination of the right hand, she still has some cellulitis had streaking up towards her wrist. The cellulitis of her long finger is slightly improved. She is able to move her MCP joint without much pain. The dressing is clean and dry.. Results & Data Results & Data Laboratory Results . Diagnostic Findings . PG Care Time/CCT Total # of Minutes Spent Total Time Spent with Patient: Total time spent is greater than 50% in coordination of care (as documented) at patient's floor/unit and/or counseling patient: Coding Level of Care Code 60482 Post Operative Follow-Up Diagnoses Cellulitis of right index finger L03.011
[2022-08-20] MEDS ORDERED: NON-FORMULARY MEDICATION (Zinc Acetate 50 mg (zinc) Capsule) PO SCH (09:00)
[2022-08-20] MEDS ORDERED: VANCOMYCIN HCL 1,000 MG in SODIUM CHLORIDE 0.9% 500 ML IV SCH (09:00)
[2022-08-20] MEDS: ACETAMINOPHEN 500 MG TAB PO PRN ×2 (11:52→20:29)
--- NOTE | 2022-08-20 16:28 | Hospitalist Progress Note ---
Date of Service August 20, 2022 Assessment & Plan (1) Cellulitis of right index finger: Plan: - Patient presents with worsening swelling and redness of right index finger, failed outpatient mgt - Hand, finger x-ray: Soft tissue swelling without acute osseous abnormality. -Markers of iflammation elevated - She is now s/p Irrigation and debridement -Continue Vanc and ceftriaxone until surgical cultures become available -Appreciate Ortho (2) Hypothyroidism: Plan: - Continue Synthroid. Plan - Continue hospitalization - SCDs for VTE PPx. - Full code. Admission and Anticipated Discharge Date Admission Date: August 19, 2022 Subjective patient seen and examined, doing well post surgery Review of Systems Review of Systems: All systems reviewed are negative, apart from the ones contained in the history. Physical Exam Physical Exam: The patient is awake, alert and oriented 3, well developed and well nourished, normocephalic and atraumatic, lying in bed and in no acute distress. HEENT--PERRL, EOMI, mucous membranes and oropharynx mildly dry Neck--supple. No JVD. No bruits. Thyroid normal, trachea midline, no adenopathy. Heart--normal S1 and S2. No murmurs, rubs or gallops. Lungs--clear bilaterally, no respiratory distress, no accessory muscle use. Abdomen--normal bowel sounds and soft. Mild epigastric and left sided abdominal pain Extremities--right index finger with dressing Dermatologic--normal skin turgor, normal color, no abnormal lymph nodes, no rash. Neurologic--cranial nerves II through XII grossly intact. Rheumatologic--normal range of motion. Psychiatric--normal affect. Results & Data Results & Data ([facility]) Vital Signs (Past 12 Hours) Vital Signs Temp Pulse Pulse Resp BP Pulse Ox O2 Del Method 08/20/22 15:43 98.4 F 82 18 107/62 94 Room Air 08/20/22 11:40 100.0 F H 76 20 124/64 97 Room Air 08/20/22 07:45 98.2 F 71 17 110/60 97 Room Air 08/20/22 07:14 97.9 F 82 16 102/56 L 94 Room Air PG Care Time/CCT Total # of Minutes Spent Total Time Spent with Patient: Total time spent is greater than 50% in coordination of care (as documented) at patient's floor/unit and/or counseling patient: Coding Level of Care Code 37483 Subseq Hosp Care Lvl 2 Diagnoses Cellulitis of right index finger L03.011 Hypothyroidism E03.9 Time Spent (min) 35
[2022-08-20] MEDS: cefTRIAXone SODIUM 1,000 MG in DEXTROSE 5% AD-VAN 50 ML IV SCH (18:09)
[2022-08-20] MEDS: ASCORBIC ACID 500 MG TAB PO SCH (20:25)
[2022-08-20] MEDS: CALCIUM 600MG + VIT D 400 IU TAB PO SCH (20:25)
[2022-08-21] MEDS ORDERED: VANCOMYCIN LEVEL ONE (04:30)
[2022-08-21] MEDS: VANCOMYCIN HCL 1,000 MG in SODIUM CHLORIDE 0.9% 250 ML IV SCH (05:06)
[2022-08-21 05:41] LABS: Hematocrit (blood only) 36.4 % (34.1-44.9); Hemoglobin 12.7 g/dl (12.0-16.0); Mean Corpuscular Hemoglobin 31.8 pg (25.0-34.0); Mean Corpuscular Hgb Conc 34.9 g/dL (32.0-36.0); Mean Corpuscular Volume 91.2 fL (80.0-100.0); Mean Platelet Volume 10.9 fL (9.4-12.3); Platelet Count 189 K/uL (130-400); RDW Coefficient of Variation 12.1 % (11.5-14.5); RDW Standard Deviation 40.5 fL (36.4-46.3); Red Blood Count 3.99 M/uL (3.93-5.22); White Blood Count 8.49 K/ul (4.8-10.8)
[2022-08-21 06:09] LABS: C Reactive Protein 14.92 mg/dl (0-0.5); Creatinine Clr Calc Pharmacy 103.6 ml/min; Est GFR (Non-African American) 99.2 ml/min
--- NOTE | 2022-08-21 08:14 | Orthopedic Progress Note ---
Date of Service August 21, 2022 Assessment & Plan (1) Infection of index finger: The final cultures came back Citrobacter. This seems to be a fairly aggressive infection. The wound site has opened back up. I redressed it. I think it is important for her to stay in the hospital and several days of IV antibiotics. She is currently on ceftriaxone and vancomycin. I will continue to watch the wound closely with daily dry dressing changes. Once the infection clears we may be able to get the wound closed. Subjective Sharon was seen and examined at bedside this morning. Overall she is doing okay. Her hand is a little bit improved but not much. She still has a lot of soreness and redness. She has been on the IV antibiotics. Final cultures are back.. Review of Systems All systems reviewed & are unremarkable except as noted in HPI & below. Physical Exam On physical examination of the right index finger, the dressing was removed. Unfortunately the infection seems fairly aggressive. The sutures are no longer intact over the incision and I was able to remove them with a forceps. There was still a lot of purulent discharge coming out of the surgical site incision. I expressed some with a purulent discharge and rewrapped the wound, leaving the wound open. . Results & Data Results & Data Laboratory Results . Diagnostic Findings . PG Care Time/CCT Total # of Minutes Spent Total Time Spent with Patient: Total time spent is greater than 50% in coordination of care (as documented) at patient's floor/unit and/or counseling patient: Coding Level of Care Code 69196 Post Operative Follow-Up Diagnoses Infection of index finger L08.9
[2022-08-21] MEDS: MULTIVITAMIN TAB PO SCH (08:16)
[2022-08-21] MEDS: LEVOTHYROXINE SODIUM 50 MCG TABLET PO SCH (08:16)
--- NOTE | 2022-08-21 15:10 | Hospitalist Progress Note ---
Date of Service August 21, 2022 Assessment & Plan (1) Cellulitis of right index finger: Plan: - Patient presents with worsening swelling and redness of right index finger, failed outpatient mgt - Hand, finger x-ray: Soft tissue swelling without acute osseous abnormality. -Markers of iflammation elevated on admission - She is now s/p Irrigation and debridement -Cultures growing Citrobacter, pansensitive -Initially on Vanc and ceftriaxone, descalated to ceftriaxone alone -Will consult ID to guide on type and duration of antibiotics -Appreciate Ortho (2) Hypothyroidism: Plan: - Continue Synthroid. Plan - Continue hospitalization. - SCDs for VTE PPx. - Full code. Admission and Anticipated Discharge Date Admission Date: August 19, 2022 Subjective patient seen and examined, doing well post surgery Review of Systems Review of Systems: All systems reviewed are negative, apart from the ones contained in the history. Physical Exam Physical Exam: The patient is awake, alert and oriented 3, well developed and well nourished, normocephalic and atraumatic, lying in bed and in no acute distress. HEENT--PERRL, EOMI, mucous membranes and oropharynx mildly dry Neck--supple. No JVD. No bruits. Thyroid normal, trachea midline, no adenopathy. Heart--normal S1 and S2. No murmurs, rubs or gallops. Lungs--clear bilaterally, no respiratory distress, no accessory muscle use. Abdomen--normal bowel sounds and soft. Mild epigastric and left sided abdominal pain Extremities--right index finger with dressing Dermatologic--normal skin turgor, normal color, no abnormal lymph nodes, no rash. Neurologic--cranial nerves II through XII grossly intact. Rheumatologic--normal range of motion. Psychiatric--normal affect. Results & Data Results & Data ([facility]) Vital Signs (Past 12 Hours) Vital Signs Temp Pulse Resp BP Pulse Ox O2 Del Method 08/21/22 11:20 98.4 F 75 16 120/66 96 Room Air 08/21/22 07:30 98.6 F 68 18 122/66 97 Room Air PG Care Time/CCT Total # of Minutes Spent Total Time Spent with Patient: Total time spent is greater than 50% in coordination of care (as documented) at patient's floor/unit and/or counseling patient: Coding Level of Care Code 25586 Subseq Hosp Care Lvl 2 Diagnoses Cellulitis of right index finger L03.011 Hypothyroidism E03.9 Time Spent (min) 35
[2022-08-21] MEDS: cefTRIAXone SODIUM 1,000 MG in DEXTROSE 5% AD-VAN 50 ML IV SCH (18:20)
[2022-08-21] MEDS: CALCIUM 600MG + VIT D 400 IU TAB PO SCH (19:50)
[2022-08-21] MEDS: ASCORBIC ACID 500 MG TAB PO SCH (19:50)
[2022-08-21] MEDS: ACETAMINOPHEN 500 MG TAB PO PRN (23:27)
[2022-08-22 07:39] LABS: Hematocrit (blood only) 38.4 % (34.1-44.9); Hemoglobin 13.3 g/dl (12.0-16.0); Mean Corpuscular Hemoglobin 31.5 pg (25.0-34.0); Mean Corpuscular Hgb Conc 34.6 g/dL (32.0-36.0); Mean Platelet Volume 10.7 fL (9.4-12.3); Platelet Count 210 K/uL (130-400); RDW Coefficient of Variation 11.9 % (11.5-14.5); RDW Standard Deviation 40.2 fL (36.4-46.3); Red Blood Count 4.22 M/uL (3.93-5.22); White Blood Count 6.83 K/ul (4.8-10.8)
[2022-08-22] MEDS: LEVOTHYROXINE SODIUM 50 MCG TABLET PO SCH (08:12)
[2022-08-22] MEDS: MULTIVITAMIN TAB PO SCH (08:12)
[2022-08-22 08:14] LABS: Creatinine Clr Calc Pharmacy 91.5 ml/min; Est GFR (African American) 110.6 ml/min; Est GFR (Non-African American) 95.5 ml/min
--- NOTE | 2022-08-22 08:49 | Orthopedic Progress Note ---
Date of Service August 22, 2022 Assessment & Plan (1) Infection of index finger: She is currently on IV ceftriaxone. I do want her to continue the IV antibiotics for now. She is still draining a lot from her wound. I will continue daily dry dressing changes and follow this. My plan right now is to keep her in the hospital and the IV antibiotics until infection is a little better controlled and then send her home on oral antibiotics. We will follow her closely and hope that the wound heals naturally on its own, however if it does not we can take her to the OR and do a formal closure if needed. Subjective Sharon was seen and examined at bedside this morning. Overall she is a little bit better. There is a little bit less redness around her hand. She denies any too much pain. I change her dressing again today.. Review of Systems All systems reviewed & are unremarkable except as noted in HPI & below. Physical Exam On physical examination with the dressing removed there was still a large amount of serous fluid expelled out of the wound. It did not seem as purulent as it was yesterday. Overall it looks a little bit better. The wound is still open.. Results & Data Results & Data Laboratory Results . Diagnostic Findings . PG Care Time/CCT Total # of Minutes Spent Total Time Spent with Patient: Total time spent is greater than 50% in coordination of care (as documented) at patient's floor/unit and/or counseling patient: Coding Level of Care Code 18454 Post Operative Follow-Up Diagnoses Infection of index finger L08.9
[2022-08-22] MEDS: ACETAMINOPHEN 500 MG TAB PO PRN (09:57)
--- NOTE | 2022-08-22 13:43 | Infectious Disease Consult ---
Date of Consultation August 22, 2022 Assessment & Plan (1) Cellulitis of multiple sites of right hand and fingers: (2) Hypothyroidism: Plan 61 yo F with PMH of hypothyroidism who was admitted to [facility] on 08/19 with acute on set of R hand swelling. Infectious diseases has been consulted for antibiotic management for R index finger abscess s/p I+D growing Citrobacter and Klebsiella Please see HPI for further details In the ED, vitals were stable and she was afebrile. Her initial labs were notable for WBC of 13.9 with ESR 40 and CRP 19. No other lab abnormalities. Finger and hand x-rays show soft tissue swelling without acute osseous abnormality. She was seen by Orthopaedics and taken to OR on 08/19 for I+D of R index finger. OR notes "large abscess that was evacuated. 2 cultures were taken. Time was spent irrigating the wound. The wound did track up proximally towards the MCP joint. I did not see any place where the infection was in the joint. The extensor mechanism was intact." OR cultures growing Citrobacter and Klebsiella, patient on IV Ceftriaxone. 08/19 Blood cultures are No Growth Discussion: Patient with R finger abscess s/p I+D on Ceftriaxone. Because Citrobacter can confer ampC resistance would favor change to Cefepime 2G IV TID while inpatient. Xray negative for OM and review of OR report shows no joint or tendon infection. Therefore we can likely change her to oral levaquin 750 mg po daily on discharge to treat for 2 week course, pending QTc. ECG ordered recommend: DC Ceftriaxone Cefepime 2G IV TID Change to po upon discharge ECG Thank you for allowing me to participate in the care of your patient.I spoke to the Primary team regarding my recommendations. Following with you. Hyacinth Gupta MD [facility], [employer] Consultation Information Consultation was provided via telemedicine using two-way real-time interactive telecommunication between the patient and the telemedicine provider. For the duration of the visit, the provider was performing the assessment from a different facility than the patient. This includesuse of bluetooth stethoscope forauscultationperformed by the telepresenter that the telemedicine provider can hear if described in the physical exam. [employer] Consultant contact information: Please call [employer] [facility] Center [phone]. (Phone Number For Physician Use Only) After establishing a telemedicine visit, patient was: Patient was verified with two unique identifiers, Patient/authorized rep acknowledged consent and understanding and Gave permission to continue telehealth session History of Present Illness Reason for Consultation: Finger infection Requesting Physician: Dr. Gurvinder Yoder Attending Physician: Gurvinder Yoder MD History of Present Illness 61 yo F with PMH of hypothyroidism who was admitted to [facility] on 08/19 with acute on set of R hand swelling. Infectious diseases has been consulted for antibiotic managment. Patient states she developed a cyst on right index finger which has been painless and stable.Her hands became dry/cracked over winter months and approx 1 week ago her hand became more sore and red and the area gradually became more swollen.She was evalauted by her PCP 08/16 and she was placed on Bactrim and Keflex. However the swelling, erythema and pain progressed and presented to ED. She denies any systemic symptoms of symptoms fever chills, fatigue, body aches. She is right-hand dominant, and the second right finger is so swollen now that it is difficult for her to use it or bend at that joint. She denies bites or any injury to hand but states she was using her hand quite frequently during the holidays. In the ED, vitals were stable and she was afebrile. Her initial labs were notable for WBC of 13.9 with ESR 40 and CRP 19. No other lab abnormalities. Finger and hand x-rays show soft tissue swelling without acute osseous abnormality. She was seen by Orthopaedics and taken to OR on 08/19 for I+D of R index finger. OR notes "large abscess that was evacuated. 2 cultures were taken. Time was spent irrigating the wound. The wound did track up proximally towards the MCP joint. I did not see any place where the infection was in the joint. The extensor mechanism was intact." OR cultures growing Citrobacter and Klebsiella, patient on IV Ceftriaxone. ID consulted today. On my interview, patient appears to be doing well. She is still in pain but improved, No F/C/N/V. No diarrhea. No allergies. Feels o/w quite well. Allergies Allergy/AdvReac Type Severity Reaction Status Date / Time No Known Allergies Allergy Verified 08/19/22 10:52 Home Medications Medication Instructions Recorded Confirmed Type loratadine 10 mg tablet (Allergy 10 mg PO DAILY PRN Allergy Symptoms 05/22/19 08/19/22 History Relief (loratadine)) multivitamin (One Daily 1 tab PO DAILY 05/22/19 08/19/22 History Multivitamin tablet) calcium carbonate 600 mg-vitamin 1 cap PO HS 05/04/20 08/19/22 History D3 12.5 mcg (500 unit) capsule (Calcium 600 with Vitamin D3) vitamin A palmitate 10,000 unit 10,000 unit PO DAILY 05/03/21 08/19/22 History tablet levothyroxine 50 mcg tablet 50 mcg PO DAILY #90 tabs 04/21/22 08/19/22 Rx (Synthroid) cephalexin 500 mg capsule 500 mg PO BID #14 caps 08/16/22 08/19/22 Rx sulfamethoxazole 800 1 tab PO BID 7 days #14 tabs 08/16/22 08/19/22 Rx mg-trimethoprim 160 mg tablet (Bactrim DS) ascorbic acid (vitamin C) 500 mg 500 mg PO HS 08/19/22 08/19/22 History tablet (Vitamin C) zinc acetate 50 mg (zinc) capsule 50 mg PO DAILY 08/19/22 08/19/22 History Patient History Medical History Abnormal Pap smear of cervix Family history of cardiac disorder in mother Hypothyroidism Surgical History History of tubal ligation 1989 OR 1990 Family History Aunt Uterine cancer Grandmother (Paternal) Diabetes Uncle Diabetes Mother Heart disease Myocardial infarction Denies family history of Ovarian cancer Prostate cancer Breast cancer Colorectal cancer Social History Smoking Status: Never smoker Second Hand Exposure: No; Hx Alcohol Use: No Hx Substance Use: No Preferred Language: Icelandic Communication Ability: Effective Visual Impairment: No Limitations Hearing Ability: Normal Media Associate Required: No Beliefs That Will Affect Care: None marital status: Current Living Situation: Alone current occupational status: employed 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 Feels Safe at Home: Yes Dental Care, Regularly: No Physical Activity Frequency: 1-2 Times per Week Seatbelt Use: always Sunscreen Use: Yes Assistive Devices: Glasses Review of System Constitutional: as per Subjective / HPI Gastrointestinal: as per Subjective / HPI Musculoskeletal: as per Subjective / HPI Integumentary: as per Subjective / HPI Physical Exam Constitutional: WD/WN, vitals as above Gastrointestinal (Abdomen): normal bowel sounds, soft, nontender, no hepatosplenomegaly Musculoskeletal: no cyanosis or clubbing, extremities motor strength 5/5 Skin: R hand wrapped Cellulitis is regressing from marked area Results & Data ([facility]) Vital Signs (Past 12 Hours) Vital Signs Temp Pulse Pulse Resp BP Pulse Ox O2 Del Method 08/22/22 07:55 36.6 C 75 17 106/68 97 Room Air 08/22/22 07:19 36.6 C 70 16 125/66 95 Room Air Laboratory Results Laboratory Results - last 48 hr 08/21/22 08/21/22 08/21/22 04:58 04:58 04:58 WBC 8.49 RBC 3.99 Hgb 12.7 Hct 36.4 MCV 91.2 MCH 31.8 MCHC 34.9 RDW Std Deviation 40.5 RDW Coeff of Willem 12.1 Plt Count 189 MPV 10.9 Creatinine 0.56 L Est Cr Clr Drug Dosing 103.6 Est GFR ( Amer) 115.0 Est GFR (Non-Af Amer) 99.2 C-Reactive Protein 14.92 H Vancomycin Trough 8.2 L 08/22/22 08/22/22 07:07 07:07 WBC 6.83 RBC 4.22 Hgb 13.3 Hct 38.4 MCV 91.0 MCH 31.5 MCHC 34.6 RDW Std Deviation 40.2 RDW Coeff of Willem 11.9 Plt Count 210 MPV 10.7 Creatinine 0.63 Est Cr Clr Drug Dosing 91.5 Est GFR ( Amer) 110.6 Est GFR (Non-Af Amer) 95.5 C-Reactive Protein Vancomycin Trough Microbiology 08/19/22 15:27 Finger,Right Index Gram Stain - Final 08/19/22 15:27 Finger,Right Index Aerobic and Anaerobic Culture - Preliminary Citrobacter freundii Klebsiella oxytoca 08/19/22 20:48 Blood Aerobic Blood Culture - Preliminary No growth in Aerobic bottle after 48 hours. 08/19/22 20:48 Blood Anaerobic Blood Culture - Preliminary No growth in Anaerobic bottle after 48 hours. 08/19/22 20:40 Blood Aerobic Blood Culture - Preliminary No growth in Aerobic bottle after 48 hours. 08/19/22 20:40 Blood Anaerobic Blood Culture - Preliminary No growth in Anaerobic bottle after 48 hours. 08/19/22 Unknown Finger,Right Index Gram Stain - Final 08/19/22 Unknown Finger,Right Index Wound Culture - Final Citrobacter freundii Medications Administered Current Inpatient Medications Acetaminophen (Acetaminophen 500 Mg Tab) 1,000 mg PO Q6H PRN PRN Reason: pain or fever Stop: 09/18/22 20:00 Last Admin: 08/22/22 09:57 Dose: 1,000 mg Ascorbic Acid (Ascorbic Acid 500 Mg Tab) 500 mg PO [facility] Stop: 09/18/22 20:59 Last Admin: 08/21/22 19:50 Dose: 500 mg Calcium/Vitamin D (Calcium 600mg + Vit D 400 Iu Tab) 1 tab PO [facility] Stop: 09/18/22 20:59 Last Admin: 08/21/22 19:50 Dose: 1 tab Cefepime HCl 2,000 mg/ (Dextrose) 120 mls @ 40 mls/hr IV Q8H [facility]; Protocol Stop: 08/29/22 13:59 Levothyroxine Sodium (Levothyroxine Sodium 50 Mcg Tablet) 50 mcg PO DAILY [facility] Stop: 09/19/22 08:59 Last Admin: 08/22/22 08:12 Dose: 50 mcg Loratadine (Loratadine 10 Mg Tab) 10 mg PO DAILY PRN PRN Reason: Allergy Symptoms Stop: 09/18/22 17:03 Multivitamins (Multivitamin Tab) 1 tab PO DAILY [facility] Stop: 09/19/22 08:59 Last Admin: 08/22/22 08:12 Dose: 1 tab Ondansetron HCl (Ondansetron Inj 2 Mg/Ml 2 Ml Vial) 4 mg IV Q6H PRN PRN Reason: Nausea Stop: 09/18/22 17:03
[2022-08-22] MEDS: Cefepime 2,000 MG Extended Infusion IV SCH ×2 (14:23→21:51)
--- NOTE | 2022-08-22 15:32 | Hospitalist Progress Note ---
Date of Service August 22, 2022 Assessment & Plan (1) Cellulitis of right index finger: Plan: Patient presented with worsening swelling and redness of right index finger, failed outpatient mgt. Hand, finger x-ray: Soft tissue swelling without acute osseous abnormality. - S/p I&D on 08/[address] Shabazz. - Cultures growing Citrobacter, pansensitive - ID recommend cefepime for now (Citrobacter can have inducible AmpC production.) Can transition to FLQ x 2-3 weeks on discharge. (2) Hypothyroidism: Plan: Last TSH was 3.5. No signs/symptoms of hyper-/hypothyroidism. - Continue Synthroid 50 mcg daily. Plan DVT ppx: Early ambulation (patient up and walking the halls multiple times per day). Admission and Anticipated Discharge Date Admission Date: August 19, 2022 Subjective Doing better today. Redness is improving in arms. Finger still swollen, but less purulent per patient when dressing was changed. Physical Exam Constitutional: WD/WN, vitals as above Eyes: EOM intact bilaterally; no conjunctival abnormality ENMT: external ear and nose normal, oropharynx normal Neck: trachea midline, no thyromegaly normal visual inspection Respiratory: normal respiratory effort, lungs clear to auscultation no respiratory distress Cardiovascular: RRR, no murmur, no edema Gastrointestinal (Abdomen): Inspection/Auscultation: abdomen normal to inspection; abdomen not distended Musculoskeletal: no cyanosis or clubbing, extremities motor strength 5/5 Skin: no rashes, warm and dry Neurologic: moves all extremities and awake Psychiatric: Orientation: alert, oriented to person and cooperative Results & Data Results & Data ([facility]) Vital Signs (Past 12 Hours) Vital Signs Temp Pulse Pulse Resp BP Pulse Ox O2 Del Method 08/22/22 15:15 36.7 C 72 14 123/73 97 Room Air 08/22/22 11:39 36.7 C 70 17 118/70 96 Room Air 08/22/22 07:55 36.6 C 75 17 106/68 97 Room Air 08/22/22 07:19 36.6 C 70 16 125/66 95 Room Air PG Care Time/CCT Total # of Minutes Spent Total Time Spent with Patient: Total time spent is greater than 50% in coordination of care (as documented) at patient's floor/unit and/or counseling patient: Coding Level of Care Code 99349 Subseq Hosp Care Lvl 3 Diagnoses Cellulitis of right index finger L03.011 Hypothyroidism E03.9
[2022-08-22] MEDS: CALCIUM 600MG + VIT D 400 IU TAB PO SCH (20:10)
[2022-08-22] MEDS: ASCORBIC ACID 500 MG TAB PO SCH (20:10)
[2022-08-23] MEDS: Cefepime 2,000 MG Extended Infusion IV SCH ×3 (05:50→22:14)
--- NOTE | 2022-08-23 06:55 | Orthopedic Progress Note ---
Date of Service August 23, 2022 Assessment & Plan (1) Infection of index finger: Fortunately her finger looks much improved today when compared to yesterday. There is little to no drainage at this point. The wound seems to be healing. She is really turning the corner. She was seen by infectious disease yesterday. They switched her to cefepime IV. I think we should keep her in the hospital today on IV cefepime. I will see her tomorrow morning. If her wound continues to improve tomorrow, she can have a final dose of the cefepime and then be discharged home on oral Levaquin. We will see how she looks tomorrow. Subjective Sharon was seen and examined at bedside this morning. Fortunately she is starting to do much better. She was seen by infectious disease yesterday. Her antibiotics were switched to cefepime. She still has some soreness in the finger and there is still signs of infection, however she seems to be improving.. Review of Systems All systems reviewed & are unremarkable except as noted in HPI & below. Physical Exam On physical examination of the right index finger shows much less drainage today. The wound seems to be closing on its own. She is much improved today when compared to yesterday. Results & Data Results & Data Laboratory Results . Diagnostic Findings . PG Care Time/CCT Total # of Minutes Spent Total Time Spent with Patient: Total time spent is greater than 50% in coordination of care (as documented) at patient's floor/unit and/or counseling patient: Coding Level of Care Code 41922 Post Operative Follow-Up Diagnoses Infection of index finger L08.9
[2022-08-23 07:20] LABS: Hematocrit (blood only) 38.3 % (34.1-44.9); Hemoglobin 13.3 g/dl (12.0-16.0); Mean Corpuscular Hemoglobin 31.6 pg (25.0-34.0); Mean Corpuscular Hgb Conc 34.7 g/dL (32.0-36.0); Mean Platelet Volume 10.8 fL (9.4-12.3); Platelet Count 246 K/uL (130-400); RDW Coefficient of Variation 11.9 % (11.5-14.5); RDW Standard Deviation 39.8 fL (36.4-46.3); Red Blood Count 4.21 M/uL (3.93-5.22)
[2022-08-23] MEDS: ACETAMINOPHEN 500 MG TAB PO PRN (07:25)
[2022-08-23 07:49] LABS: BUN Creatinine Ratio 20.3 (10-20); Calcium 9.4 mg/dl (8.5-10.1); Creatinine Clr Calc Pharmacy 83.6 ml/min; Est GFR (African American) 107.4 ml/min; Est GFR (Non-African American) 92.6 ml/min; Magnesium 1.8 mg/dl (1.7-2.4); Potassium 3.9 mmol/L (3.5-5.1)
[2022-08-23] MEDS: LEVOTHYROXINE SODIUM 50 MCG TABLET PO SCH (08:32)
[2022-08-23] MEDS: MULTIVITAMIN TAB PO SCH (08:32)
--- NOTE | 2022-08-23 11:29 | Infectious Disease Progress Nt ---
Date of Service August 23, 2022 Assessment & Plan (1) Cellulitis of multiple sites of right hand and fingers: (2) Hypothyroidism: Plan 61 yo F with PMH of hypothyroidism who was admitted to [facility] on 08/19 with acute on set of R hand swelling. Infectious diseases has been consulted for antibiotic management for R index finger abscess s/p I+D growing Citrobacter and Klebsiella Please see HPI for further details In the ED, vitals were stable and she was afebrile. Her initial labs were notable for WBC of 13.9 with ESR 40 and CRP 19. No other lab abnormalities. Finger and hand x-rays show soft tissue swelling without acute osseous abnormality. She was seen by Orthopaedics and taken to OR on 08/19 for I+D of R index finger. OR notes "large abscess that was evacuated. 2 cultures were taken. Time was spent irrigating the wound. The wound did track up proximally towards the MCP joint. I did not see any place where the infection was in the joint. The extensor mechanism was intact." OR cultures growing Citrobacter and Klebsiella, patient on IV Ceftriaxone. 08/19 Blood cultures are No Growth 08/22 ABX Changed to IV Cefepime to cover ampC resistance in Citrobacter. O/N significant improvement. Discussion: Patient with R finger abscess s/p I+D Because Citrobacter can confer ampC resistance abx changed to Cefepime 2G IV TID while inpatient. Xray negative for OM and review of OR report shows no joint or tendon infection. ECG reviewed and QTC <500, Therefore can change her to oral levaquin 750 mg po daily on discharge. Recommend: C/W IV Cefepime 2G IV TID, would give at least 24 hours more pending her exam findings tomorrow Change to po upon discharge start Levaquin 750mg po daily through 09/06/22 (2 weeks therapy from start of Cefepime) Follow up with Orthopaedics and Primary as outpatient Discussed potential AEs related to levaquin. Thank you for allowing me to participate in the care of your patient.I spoke to the Primary team regarding my recommendations. Hyacinth Gupta MD [facility], [facility] Admission and Anticipated Discharge Date Admission Date: August 19, 2022 Subjective Subsequent visit was provided via telemedicine using two-way real-time interactive telecommunication between the patient and the telemedicine provider. For the duration of the visit, the provider was performing the assessment from a different facility than the patient. This includesuse of bluetooth stethoscope forauscultationperformed by the telepresenter that the telemedicine provider can hear if described in the physical exam. Residential Coordinator contact information: Please call [facility] Call Center . (Phone Number For Physician Use Only) After establishing a telemedicine visit, patient was: Patient was verified with two unique identifiers, Patient/authorized rep acknowledged consent and understanding and Gave permission to continue telehealth session 24 hours: BRITTANY, VSS No new Micro WBC 6, Chem stable ABX changed to IV Cefepime S: Patient is feeling better, improved movement and decreased pain Physical Exam Constitutional: WD/WN, vitals as above Musculoskeletal: Improved flexion and extension of digit Skin: Erythema hand improved Results & Data ([facility]) Vital Signs (Past 12 Hours) Vital Signs Temp Pulse Resp BP Pulse Ox O2 Del Method 08/23/22 07:20 36.6 C 72 18 124/76 98 Room Air Laboratory Results Laboratory Results - last 48 hr 08/22/22 08/22/22 08/23/22 07:07 07:07 05:57 WBC 6.83 6.10 RBC 4.22 4.21 Hgb 13.3 13.3 Hct 38.4 38.3 MCV 91.0 91.0 MCH 31.5 31.6 MCHC 34.6 34.7 RDW Std Deviation 40.2 39.8 RDW Coeff of Willem 11.9 11.9 Plt Count 210 246 MPV 10.7 10.8 Sodium Potassium Chloride Carbon Dioxide Anion Gap BUN Creatinine 0.63 Est Cr Clr Drug Dosing 91.5 Est GFR ( Amer) 110.6 Est GFR (Non-Af Amer) 95.5 BUN/Creatinine Ratio Glucose Calcium Magnesium 08/23/22 05:57 WBC RBC Hgb Hct MCV MCH MCHC RDW Std Deviation RDW Coeff of Willem Plt Count MPV Sodium 140 Potassium 3.9 Chloride 104 Carbon Dioxide 29 Anion Gap 7 BUN 14 Creatinine 0.69 Est Cr Clr Drug Dosing 83.6 Est GFR ( Amer) 107.4 Est GFR (Non-Af Amer) 92.6 BUN/Creatinine Ratio 20.3 H Glucose 98 Calcium 9.4 Magnesium 1.8 Microbiology 08/19/22 15:27 Finger,Right Index Gram Stain - Final 08/19/22 15:27 Finger,Right Index Aerobic and Anaerobic Culture - Preliminary Citrobacter freundii Klebsiella oxytoca 08/19/22 20:48 Blood Aerobic Blood Culture - Preliminary No growth in Aerobic bottle after 48 hours. 08/19/22 20:48 Blood Anaerobic Blood Culture - Preliminary No growth in Anaerobic bottle after 48 hours. 08/19/22 20:40 Blood Aerobic Blood Culture - Preliminary No growth in Aerobic bottle after 48 hours. 08/19/22 20:40 Blood Anaerobic Blood Culture - Preliminary No growth in Anaerobic bottle after 48 hours. 08/19/22 Unknown Finger,Right Index Gram Stain - Final 08/19/22 Unknown Finger,Right Index Wound Culture - Final Citrobacter freundii Medications Administered Microbiology 08/19/22 15:27 Finger,Right Index Gram Stain - Final 08/19/22 15:27 Finger,Right Index Aerobic and Anaerobic Culture - Preliminary Citrobacter freundii Klebsiella oxytoca 08/19/22 20:48 Blood Aerobic Blood Culture - Preliminary No growth in Aerobic bottle after 48 hours. 08/19/22 20:48 Blood Anaerobic Blood Culture - Preliminary No growth in Anaerobic bottle after 48 hours. 08/19/22 20:40 Blood Aerobic Blood Culture - Preliminary No growth in Aerobic bottle after 48 hours. 08/19/22 20:40 Blood Anaerobic Blood Culture - Preliminary No growth in Anaerobic bottle after 48 hours. 08/19/22 Unknown Finger,Right Index Gram Stain - Final 08/19/22 Unknown Finger,Right Index Wound Culture - Final Citrobacter freundii
--- NOTE | 2022-08-23 13:27 | Electrocardiogram Report ---
Test Reason : Blood Pressure : / mmHG Vent. Rate : 078 BPM Atrial Rate : 078 BPM P-R Int : 122 ms QRS Dur : 094 ms QT Int : 372 ms P-R-T Axes : 078 052 071 degrees QTc Int : 424 ms Normal sinus rhythm Poor R wave progression, consider anterior GA vs. lead placement vs. LVH Abnormal ECG No previous ECGs available Confirmed by Ernie Bello ([id number]) on 08/23/2022 1:27:25 PM Referred By: Melissa Liang Confirmed By:Ernie Bello
--- NOTE | 2022-08-23 14:15 | Hospitalist Progress Note ---
Date of Service August 23, 2022 Assessment & Plan (1) Cellulitis of right index finger: Plan: Patient presented with worsening swelling and redness of right index finger, failed outpatient mgt. Hand, finger x-ray: Soft tissue swelling without acute osseous abnormality. - S/p I&D on 08/[address] Shabazz. - Cultures growing Citrobacter, pansensitive - ID recommend cefepime for now (Citrobacter can have inducible AmpC production.) Can transition to FLQ x 2-3 weeks on discharge. Possibly tomorrow vs. . (2) Hypothyroidism: Plan: Last TSH was 3.5. No signs/symptoms of hyper-/hypothyroidism. - Continue Synthroid 50 mcg daily. Plan DVT ppx: Early ambulation (patient up and walking the halls multiple times per day). Admission and Anticipated Discharge Date Admission Date: August 19, 2022 Subjective Doing better yet today. Improving finger. No major concerns. No fevers/chills. Reports no fevers/chills, chest pain, shortness of breath, abdominal pain, nausea, or vomiting. Physical Exam Constitutional: WD/WN, vitals as above Eyes: EOM intact bilaterally; no conjunctival abnormality ENMT: external ear and nose normal, oropharynx normal Neck: trachea midline, no thyromegaly normal visual inspection Respiratory: normal respiratory effort, lungs clear to auscultation no respiratory distress Cardiovascular: RRR, no murmur, no edema Gastrointestinal (Abdomen): Inspection/Auscultation: abdomen normal to inspection; abdomen not distended Musculoskeletal: no cyanosis or clubbing, extremities motor strength 5/5 Skin: no rashes, warm and dry Neurologic: moves all extremities and awake Psychiatric: Orientation: alert, oriented to person and cooperative Results & Data Results & Data ([facility]) Vital Signs (Past 12 Hours) Vital Signs Temp Pulse Resp BP Pulse Ox O2 Del Method 08/23/22 13:57 36.4 C L 81 18 122/78 97 Room Air 08/23/22 07:20 36.6 C 72 18 124/76 98 Room Air PG Care Time/CCT Total # of Minutes Spent Total Time Spent with Patient: Total time spent is greater than 50% in coordination of care (as documented) at patient's floor/unit and/or counseling patient: Coding Level of Care Code 14129 Subseq Hosp Care Lvl 2 Diagnoses Cellulitis of right index finger L03.011 Hypothyroidism E03.9
[2022-08-23] MEDS: ASCORBIC ACID 500 MG TAB PO SCH (21:15)
[2022-08-23] MEDS: CALCIUM 600MG + VIT D 400 IU TAB PO SCH (21:15)
[2022-08-24] MEDS: Cefepime 2,000 MG Extended Infusion IV SCH (05:49)
[2022-08-24] MEDS: ACETAMINOPHEN 500 MG TAB PO PRN (05:53)
--- NOTE | 2022-08-24 06:32 | Orthopedic Progress Note ---
Date of Service August 24, 2022 Assessment & Plan (1) Infection of index finger: She seems to be improving. I think she is safe for discharged home today on oral Levaquin. I will see her in my office next Monday to remove a few sutures and to start her with physical therapy. I also recommend follow-up with wound care. I think it is very important that we get proper wound closure and proper motion of her right index finger. She should be seen by wound care either later this week or early next week. She is orthopedically stable for discharge. Discharge instructions were placed in the discharge summary. Subjective Sharon was seen and examined at bedside this morning. Overall she is doing fairly well. The finger continues to improve. She has no new complaints.. Review of Systems All systems reviewed & are unremarkable except as noted in HPI & below. Physical Exam On physical examination of the left finger, I remove the dressing. The wound seems to be healing at this point. There is a little bit of watery drainage but no purulent discharge.. Results & Data Results & Data Laboratory Results . Diagnostic Findings . PG Care Time/CCT Total # of Minutes Spent Total Time Spent with Patient: Total time spent is greater than 50% in coordination of care (as documented) at patient's floor/unit and/or counseling patient: Coding Level of Care Code 11247 Post Operative Follow-Up Diagnoses Infection of index finger L08.9
[2022-08-24] MEDS: MULTIVITAMIN TAB PO SCH (08:52)
[2022-08-24] MEDS: LEVOTHYROXINE SODIUM 50 MCG TABLET PO SCH (08:52)
[2022-08-24] MEDS ORDERED: levoFLOXacin 750 MG TAB PO ONE (11:30)
--- NOTE | 2022-08-24 12:17 | Infectious Disease Progress Nt ---
Date of Service August 24, 2022 Assessment & Plan (1) Cellulitis of multiple sites of right hand and fingers: (2) Hypothyroidism: Plan 61 yo F with PMH of hypothyroidism who was admitted to [facility] on 08/19 with acute on set of R hand swelling. Infectious diseases has been consulted for antibiotic management for R index finger abscess s/p I+D growing Citrobacter and Klebsiella Please see HPI for further details In the ED, vitals were stable and she was afebrile. Her initial labs were notable for WBC of 13.9 with ESR 40 and CRP 19. No other lab abnormalities. Finger and hand x-rays show soft tissue swelling without acute osseous abnormality. She was seen by Orthopaedics and taken to OR on 08/19 for I+D of R index finger. OR notes "large abscess that was evacuated. 2 cultures were taken. Time was spent irrigating the wound. The wound did track up proximally towards the MCP joint. I did not see any place where the infection was in the joint. The extensor mechanism was intact." OR cultures growing Citrobacter and Klebsiella, patient on IV Ceftriaxone. 08/19 Blood cultures are No Growth 08/22 ABX Changed to IV Cefepime to cover ampC resistance in Citrobacter. O/N significant improvement. Discussion: Patient with R finger abscess s/p I+D Because Citrobacter can confer ampC resistance abx changed to Cefepime 2G IV TID while inpatient. Xray negative for OM and review of OR report shows no joint or tendon infection. ECG reviewed and QTC <500, Therefore can change her to oral levaquin 750 mg po daily on discharge. Recommend: C/W IV Cefepime 2G IV TID while inpatient Change to po upon discharge start Levaquin 750mg po daily through 09/06/22 (2 weeks therapy from start of Cefepime) Follow up with Orthopaedics and Primary as outpatient Discussed potential AEs related to levaquin. Thank you for allowing me to participate in the care of your patient.I spoke to the Primary team regarding my recommendations. Hyacinth Gupta MD [facility], [facility] Admission and Anticipated Discharge Date Admission Date: August 19, 2022 Subjective Subsequent visit was provided via telemedicine using two-way real-time interactive telecommunication between the patient and the telemedicine provider. For the duration of the visit, the provider was performing the assessment from a different facility than the patient. This includesuse of blue[employer] stethoscope forauscultationperformed by the telepresenter that the telemedicine provider can hear if described in the physical exam. Doubling Machine Operator contact information: Please call [facility] Call Center . (Phone Number For Physician Use Only) After establishing a telemedicine visit, patient was: Patient was verified with two unique identifiers, Patient/authorized rep acknowledged consent and understanding and Gave permission to continue telehealth session 24 hours BRITTANY S: No complaints ready for home discharge Physical Exam Constitutional: WD/WN, vitals as above Musculoskeletal: improved extension/flexion of digit Skin: continued erythema improvement of hand Results & Data ([place]) Vital Signs (Past 12 Hours) Vital Signs Temp Pulse Pulse Resp BP BP Pulse Ox 08/24/22 11:37 36.8 C 79 69 18 106/66 132/79 96 08/24/22 11:24 36.8 C 79 18 106/66 96 08/24/22 07:44 36.6 C 77 18 132/79 95 08/24/22 07:06 36.7 C 69 16 122/68 96 08/24/22 05:00 36.5 C 75 18 128/72 99 O2 Del Method 08/24/22 11:37 08/24/22 11:24 Room Air 08/24/22 07:44 Room Air 08/24/22 07:06 Room Air 08/24/22 05:00 Room Air Medications Administered Current Inpatient Medications Acetaminophen (Acetaminophen 500 Mg Tab) 1,000 mg PO Q6H PRN PRN Reason: pain or fever Stop: 09/18/22 20:00 Last Admin: 08/24/22 05:53 Dose: 1,000 mg Ascorbic Acid (Ascorbic Acid 500 Mg Tab) 500 mg PO HS JOB Stop: 09/18/22 20:59 Last Admin: 08/23/22 21:15 Dose: 500 mg Calcium/Vitamin D (Calcium 600mg + Vit D 400 Iu Tab) 1 tab PO HS JOB Stop: 09/18/22 20:59 Last Admin: 08/23/22 21:15 Dose: 1 tab Cefepime HCl 2,000 mg/ (Dextrose) 120 mls @ 40 mls/hr IV Q8H JOB; Protocol Stop: 08/29/22 13:59 Last Infusion: 08/24/22 08:52 Dose: Infused Levothyroxine Sodium (Levothyroxine Sodium 50 Mcg Tablet) 50 mcg PO DAILY [facility] Stop: 09/19/22 08:59 Last Admin: 08/24/22 08:52 Dose: 50 mcg Loratadine (Loratadine 10 Mg Tab) 10 mg PO DAILY PRN PRN Reason: Allergy Symptoms Stop: 09/18/22 17:03 Multivitamins (Multivitamin Tab) 1 tab PO DAILY JOB Stop: 09/19/22 08:59 Last Admin: 08/24/22 08:52 Dose: 1 tab Ondansetron HCl (Ondansetron Inj 2 Mg/Ml 2 Ml Vial) 4 mg IV Q6H PRN PRN Reason: Nausea Stop: 09/18/22 17:03
--- NOTE | 2022-08-24 17:25 | Discharge Summary ---
Date of Service August 24, 2022 Admission HPI Per Admitting Provider Sharon Arellano is a 61-year-old female with a past medical history of hypothyroidism who is presenting today with right hand swelling. Several months ago she developed a right nodule on her right index finger which has been painless and stable. 1 week ago she noticed it became more sore and red and the area gradually became more swollen. She saw her PCP 3 days ago on 08/16 who diagnosed her with a skin infection likely due to cracked skin, placed her on Bactrim and Keflex. Despite compliance with medications, patient notes that the swelling and redness have only worsened since then. She is not having severe pain, but it is uncomfortable with deep touch. She has no injuries to the index finger, has not had history of skin or soft tissue infections. She is nondiabetic. She has not noticed any other symptoms of infection such as fever chills, fatigue, body aches. She is right-hand dominant, and the second right finger is so swollen now that it is difficult for her to use it or bend at that joint. Some numbness of the finger, but noother hand/arm numbness, tingling, severe pain, or cold to touch. On presentation to ED, her vital signs are within normal limits and stable. Her labs are notable for 5 WBC of 13.9 with ESR 40 and CRP 19. No other lab abnormalities. Finger and hand x-rays show soft tissue swelling without acute osseous abnormality. Orthopedic surgery was consulted by ED provider. Will assess patient in ED and determine need for OR for drainage. Principal Diagnosis Right index finger abscess Discharge Exam Constitutional WD/WN, vitals as above Eyes EOM intact bilaterally; no conjunctival abnormality ENMT external ear and nose normal, oropharynx normal Neck trachea midline, no thyromegaly normal visual inspection Respiratory normal respiratory effort, lungs clear to auscultation no respiratory distress Cardiovascular RRR, no murmur, no edema Gastrointestinal (Abdomen) Inspection/Auscultation: abdomen normal to inspection; abdomen not distended Musculoskeletal no cyanosis or clubbing, extremities motor strength 5/5 Skin no rashes, warm and dry Improving erythema on arms. Finger wrapped, but looking less swollen. Neurologic moves all extremities and awake Psychiatric Orientation: alert, oriented to person and cooperative Discharge Data Allergies Allergy/AdvReac Type Severity Reaction Status Date / Time No Known Allergies Allergy Verified 08/19/22 10:52 Consultations 12/09/22 13:09 Consult Orthopedic Surgery Stat ED Decision to Admit Stat 08/21/22 08:30 Consult Infectious Diseases Routine Procedures Performed Operation Date: 08/19/22 14:00 Actual Procedures p Irrigation and debridement right index finger(Right) - Jose Roberto Shabazz DO Hospital Course (1) Cellulitis of right index finger: Patient presented with worsening swelling and redness of right index finger, failed outpatient mgt. Hand, finger x-ray: Soft tissue swelling without acute osseous abnormality. - S/p I&D on 08/[address] Shabazz. - Cultures growing Citrobacter, pansensitive - ID recommend cefepime while inpatient (Citrobacter can have inducible AmpC production.) Transitioned to levofloxacin x 2 weeks on discharge. Will follow up with [facility] on Monday and Dr. Shabazz next week. (2) Hypothyroidism: Last TSH was 3.5. No signs/symptoms of hyper-/hypothyroidism. - Continue Synthroid 50 mcg daily. Plan DVT ppx: Early ambulation (patient up and walking the halls multiple times per day). Total Time Total Time Spent Total Time Spent (In Minutes): 35 Discharge Plan Discharge Items Patient Disposition: Home - Self-Care Reason For Visit: RIGHT HAND CELLULITIS/ABCESS Discharge Diagnosis: Right hand abscess Condition on Discharge: Good Activity: Resume your previous activity Non-emergency contact: Primary Care Provider and Surgeon Call non-emergency contact if: your symptoms worsen and your temperature is above 101 Follow-up/Referrals: Vanessa Carpenter CRNP [Nurse Practitioner] - 08/26/22 10:00 am (Please follow up on Monday with your appointment at [facility]ound Center.) Melissa Liang MD [Primary Care Provider] - Jose Roberto Shabazz DO [Physician] - 08/31/22 10:30 am (Please follow discharge i nstructions for follow-up.) Diet: Regular Addtl Attending Provider Instructions: Ms. Arellano, Dannie were admitted to the hospital with a right finger abscess that required drainage by Dr. Shabazz. We have a culture of the bacteria that caused the infection and are putting you on an oral antibiotic for a bit under 2 more weeks. Take the first dose the morning of 08/25/2022 (tomorrow), then daily until gone. Please see the Wound Center on Monday. Please call Dr. Shabazz or return to the ER if the finger gets more red, more swollen, more painful, or if you have fevers/chills, or other symptoms. Addtl Keysmith Provider Instructions: Orthopedic instructions: Daily dry dressing changes until follow-up with wound care. Follow-up with Dr. Shabazz on Monday for follow-up. Please call the office to make an appointment for a time that works for you. Office phone number is [phone]. Pending Studies at Discharge: No Stand-Alone Forms: [facility], Smoking Cessation Medications and DC Order Prescriptions: New levofloxacin 750 mg tablet 750 mg PO DAILY Qty: 12 0RF Rx Instructions: First dose the morning of 08/25/2022, then daily until gone. Continued levothyroxine [Synthroid] 50 mcg tablet 50 mcg PO DAILY Qty: 90 1RF multivitamin [One Daily Multivitamin] tablet 1 tab PO DAILY loratadine [Allergy Relief (loratadine)] 10 mg tablet 10 mg PO DAILY PRN (Reason: Allergy Symptoms) calcium carbonate-vitamin D3 [Calcium 600 with Vitamin D3] 600 mg(1,500mg) - 500 unit capsule 1 cap PO HS vitamin A palmitate 10,000 unit tablet 10,000 unit PO DAILY zinc acetate 50 mg (zinc) Capsule 50 mg PO DAILY ascorbic acid (vitamin C) [Vitamin C] 500 mg Tablet 500 mg PO HS Discontinued cephalexin 500 mg capsule 500 mg PO BID Qty: 14 0RF sulfamethoxazole-trimethoprim [Bactrim DS] 800-160 mg tablet 1 tab PO BID 7 Days Qty: 14 0RF Discharge Orders: Discharge Order (Routine); Ordered 08/24/22 Ordered By: Gurvinder Shah/Other Patient Handouts: ED Cellulitis Admission Data Admit Date/Time: 08/19/22 13:27 Attending Provider: Gurvinder Yoder Admit Provider: Tanvir Johnson Primary Care Provider: Melissa Liang Other Providers: Jose Roberto Shabazz ; Tanvir Johnson ; Cindy Sweeney ; Darrell Mcnulty ; Mylene Cole ; Carolyn Dos Santos ; Emma Barnard ; Hyacinth Gupta ; Michelle Dunlap ; Yasmine Deleon ; Jacqueline Cota Other Interventions: Discharge Summary Assessment (RN) Last Done: 08/24/22 11:37 Coding Level of Care Code D/C DAY MANAGEMENT >30 MINS Diagnoses Cellulitis of right index finger L03.011 Hypothyroidism E03.9
== END 2022-08-24 12:21 | disposition home or self-care (01) | DRG 580 ==
LOC: ED 09:35 → 3W 13:27 → SUATTDRO 13:27 → 3W 19:05